=== PATIENT | male | born 1975 | race Caucasian/White ===

== ENCOUNTER 2018-03-06 02:05 | Emergency (ER) | payer BC ==
[~2018-03-06] VITALS: Ht 172.7 cm; Wt 61.4 kg
[~2018-03-06 02:05] MED LIST: BENADRYL 5050 MG/CAP PO; NO HOME MEDICATIONS; PEPCID 20MG TAB20 MG PO; PREDNISONE20 MG PO
[2018-03-06 02:08] VITALS: BP 133/77; TEMP 98.2
[2018-03-06] MEDS ORDERED: BACTRIM DS 8001 TAB PO (03:13)
[2018-03-06 03:20] VITALS: PULSE 70
== END 2018-03-06 03:20 | disposition home or self-care (01) ==
LOC: COL.ER 02:05
DX: J34.0 Abscess, furuncle and carbuncle of nose (principal); J45.909 Unspecified asthma, uncomplicated; R22.0 Localized swelling, mass and lump, head

== ENCOUNTER 2021-04-13 23:31 | Emergency (ER) | payer BC ==
[~2021-04-13] VITALS: Ht 172.7 cm; Wt 63.6 kg
[~2021-04-13 23:31] MED LIST changes: +BACTRIM DS 8001 TAB PO
[2021-04-14 00:59] VITALS: BP 121/71; PULSE 72; TEMP 98
== END 2021-04-14 00:59 | disposition home or self-care (01) ==
LOC: COL.ER 23:31
DX: H57.89 Other specified disorders of eye and adnexa (principal); T78.40XA Allergy, unspecified, initial encounter

== ENCOUNTER 2023-08-03 09:37 | Day surgery (SDC) | payer BC ==
[~2023-08-03] VITALS: Ht 170.2 cm; Wt 67.9 kg
[2023-08-03 11:48] VITALS: BP 107/87; PULSE 85; TEMP 97.4
[2023-08-03 12:00] VITALS: BP 107/87; PULSE 63
--- NOTE | 2023-08-03 12:00 | NUR ---
PATIENT RETURNS TO [facility] PER CART AND TRANSFRS FROM CART TO RECLINER WITH ONE PERSON ASSIST. IVF INFUSING. AWAKE AND ALERT. GIVEN CRACKERS AND WATER FOR SNACK PER REQUEST. DENIES ABDOMINAL PAIN OR NAUSEA. 1215 104/71 75, 16, 96% ON ROOM AIR. TOLERATED SNACK WITHOUT NAUSEA. 1220 PATIENT IS DRESSED AND IV DISCONTINUED. SITE IS FREE OF REDNESS. SPOUSE HAS BEEN NOTIFIED OF DISCHARE AND IS HERE. DR. GREER CALLED AN TALKED WITH SPOUSE. 1223 DISMISSAL INSTRUCTIONS GIVEN AND SIGNED. VOICES UNDERSTANDING OF 9 YEAR SCREENING. 1225 PATIENT DISCHARGED TO HOME DRIVEN BY SPOUSE AND TAKEN TO VEHICLE PER WHEELCHAIR. DISMISSAL INSTRUCTIONS IN HAND.
== END 2023-08-03 12:25 ==
LOC: SDCO 09:37
DX: Z12.11 Encounter for screening for malignant neoplasm of colon (principal)
CPT/HCPCS: J2704; J7120